=== PATIENT | female | born 1950 | race Caucasian/White ===

== ENCOUNTER 2016-12-24 21:05 | Emergency (ER) | payer MEDICARE, OTHER ==
[~2016-12-24] VITALS: Ht 170.2 cm; Wt 115.0 kg
[~2016-12-24 21:05] MED LIST: ACYC800T PO; ALPR0.25 PO; AMLO2.5T PO; ERGO2000 PO; HYDR25TA5 PO; LOSA100T PO; MEDR4PAK PO; METO50TA PO; SERT-129 PO
[2016-12-24 21:17] VITALS: PULSE 66; RESP 18; TEMP 97.6; O2SAT 100
[2016-12-24 21:47] VITALS: BP 165/70; PULSE 66; RESP 18; TEMP 97.6; O2SAT 100
--- NOTE | 2016-12-24 22:02 | PD ---
HPI Chief Complaint: Wellness Assistant Problem Time Seen by Provider: 21:32 Travel History International Travel<30 days: No Contact w/Intl Traveler<30days: No Traveled to known affect area: No History of Present Illness HPI 66 years old female complaining increasing pain on the right side of the chest. Patient status post mastectomy 4 days ago. Patient had a radical mastectomy on the left and modify mastectomy on the right side. Patient has drank tubes in place bilaterally. Patient states that the drain tube on the right side stopped draining 2 days ago. Patient states that she has increasing pain in her right side. Patient states that she has some leakage of bloody fluid from the right side. Patient denies any fever chills. Patient surgeon is Dr. Pierce. [facility] Past Medical History Arthritis: No Autoimmune Disease: No Anxiety: Yes Depression: Yes (DUE TO HEALTH ISSUES) Heart Rhythm Problems: No Cancer: Yes (LUMPECTOMY) Cardiovascular Problems: Yes High Cholesterol: No Chemotherapy: Yes (ORAL) Chest Pain: No Congestive Heart Failure: Yes COPD: Yes Cerebrovascular Accident: No Diabetes: No Diminished Hearing: No Endocrine: No Gastrointestinal Disorders: Yes Genitourinary: No Headaches: No Hypertension: Yes Immune Disorder: No Implanted Vascular Access Dvce: No Musculoskeletal: No Neurologic: Yes Psychiatric: Yes Reproductive: No Respiratory: Yes ("PULMONARY SPASMS") Migraines: No Pneumonia: Yes Radiation Therapy: Yes (IN 1999) Seizures: No Shingles: Yes Sleep Apnea: No ?: Not Menopausal: Yes : 2 Para: 2 Past Surgical History Abdominal Surgery: No Cardiac Surgery: Yes (PROLAPSED MITROVALVE) Section: Yes Cholecystectomy: Yes Ear Surgery: No Endocrine Surgery: No Eye Surgery: No Genitourinary Surgery: No Gynecologic Surgery: Yes ( X2) Neurologic Surgery: No Oral Surgery: No Pacemaker: No Thoracic Surgery: No Other Surgery: Yes (LEFT BREAST LUMPECTOMY) Social History Alcohol Use: Yes (occas) Tobacco Use: No Substance Use: No Allergies-Medications (Allergen,Severity, Reaction): Coded Allergies: Latex (Verified Allergy, Intermediate, Rash, 12/24/16) Codeine (Verified Adverse Reaction, Severe, VOMITING, 12/24/16) Reported Meds & Prescriptions Reported Meds & Active Scripts Active Acyclovir 800 Mg Tab 800 Mg PO 5 TIMES A DAY 7 Days Medrol Dosepak (Methylprednisolone) 4 Mg Dspk 4 Mg PO DIRECTED Per Pharmacist direction Reported Metoprolol Tartrate 50 Mg Tab 50 Mg PO DAILY Hydrochlorothiazide 25 Mg Tab 25 Mg PO DAILY Sertraline (Sertraline HCl) 100 Mg Tab 100 Mg PO DAILY Losartan (Losartan Potassium) 100 Mg Tab 100 Mg PO DAILY Vitamin D2 (Ergocalciferol) 2,000 Unit Tab 5,000 Units PO EVERY OTHER WEEK Alprazolam 0.25 Mg Tab 0.25 Mg PO DAILY PRN Amlodipine (Amlodipine Besylate) 2.5 Mg Tab 2.5 Mg PO DAILY Physical Exam Narrative GENERAL: Well-nourished, well-developed patient. SKIN: Focused skin assessment warm/dry. HEAD: Normocephalic. EYES: No scleral icterus. No injection or drainage. NECK: Supple, trachea midline. No JVD or lymphadenopathy. CARDIOVASCULAR: Regular rate and rhythm without murmurs, gallops, or rubs. RESPIRATORY: Breath sounds equal bilaterally. No accessory muscle use. GASTROINTESTINAL: Abdomen soft, non-tender, nondistended. MUSCULOSKELETAL: No cyanosis, or edema. BACK: Nontender without obvious deformity. No CVA tenderness. Examination of the drainage system on the right sided chest, patient has a blood clot in the tubing. The tubing is not draining. The wound is without redness. Ecchymosis noted around the surgical wound. Minimal drainage around the tubing in contact with the skin. Data Data Last Documented VS Vital Signs Date Time Temp Pulse Resp B/P Pulse Ox O2 Delivery O2 Flow Rate FiO2 12/24/16 21:17 97.6 66 18 100 MDM Medical Decision Making Medical Screen Exam Complete: Yes Emergency Medical Condition: Yes Differential Diagnosis Differential diagnosis including clogged drainage tube Narrative Course 66 years old female status post bilateral mastectomy with clogged drainage tube on the right side. I spoke with Dr. Pierce her surgeon, advised to be seen in the office tomorrow morning. Diagnosis Primary Impression: [place] drain site pain Patient Instructions: General Instructions Additional Instructions: Follow with surgeon in a.m. Med/Other Pt SpecificInfo: No Change to Meds Disposition: 01 DISCHARGE HOME Condition: Stable Jovani Cohen MD Dec 24, 2016 22:02
[2016-12-24] MEDS ORDERED: HYDR-3516 PO (22:26)
[2016-12-24] MEDS ORDERED: ANAS1TAB PO (22:26)
[2016-12-24] MEDS ORDERED: ASPI81CH CHEW (22:26)
[2016-12-24] MEDS ORDERED: NON-500T10 PO (22:26)
== END 2016-12-24 22:40 | disposition home or self-care (01) ==
LOC: PHED 21:05
DX: T85.848A Pain due to other internal prosthetic devices, implants and grafts, initial encounter (principal); I10 Essential (primary) hypertension; Z98.890 Other specified postprocedural states; Z85.3 Personal history of malignant neoplasm of breast; Z86.59 Personal history of other mental and behavioral disorders; Z86.79 Personal history of other diseases of the circulatory system; Z87.09 Personal history of other diseases of the respiratory system; Z87.19 Personal history of other diseases of the digestive system; Z86.69 Personal history of other diseases of the nervous system and sense organs
CPT/HCPCS: 99281